=== PATIENT | male | born 1975 | race American Indian/Alaskan Native ===

== ENCOUNTER 2017-06-21 15:45 | Emergency (ER) | payer SELFPAY ==
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
[2017-06-21] MEDS ORDERED: SUBLIMAZE IV ONE (22:48)
[2017-06-21] MEDS ORDERED: KETALAR IV ONE ×2 (23:00→23:51)
--- NOTE | 2017-06-21 23:51 | XRay Report ---
FINAL REPORT EXAM: XR SHOULDER 2+V RT HISTORY: POSSIBLE DISLOCATION TECHNIQUE: Four views of the right shoulder were submitted. FINDINGS: The glenohumeral joint appears normal. There is no evidence of fracture. The subacromial space appears normal. The AC joint reveals marginal spurring superiorly. Soft tissues are unremarkable. IMPRESSION: No evidence of fracture or dislocation. Marginal spurring along the superior margin of the AC joint.
[2017-06-22 00:31] VITALS: BP 160/113
--- NOTE | 2017-06-22 00:38 | XRay Report ---
FINAL REPORT EXAM: XR SHOULDER 1V RT HISTORY: post-reduction TECHNIQUE: A neutral AP view of the right shoulder was obtained following reduction. FINDINGS: The glenohumeral joint is in proper orientation. The AC joint reveals marginal spurring superiorly with minimal narrowing. There is no evidence of fracture. IMPRESSION: Satisfactory reduction.
== END 2017-06-22 00:33 | disposition home or self-care (01) ==
LOC: ED 15:45
DX: S43.084A Other dislocation of right shoulder joint, initial encounter (principal); I10 Essential (primary) hypertension; W51.XXXA Accidental striking against or bumped into by another person, initial encounter; Y93.89 Activity, other specified; Y99.8 Other external cause status; Y92.89 Other specified places as the place of occurrence of the external cause
CPT/HCPCS: 23650; 73020; 73030; 99284; J3010